=== PATIENT | male | born 1955 | race Caucasian/White ===

== ENCOUNTER 2017-06-23 13:47 | Observation (INO) | payer SELFPAY ==
[~2017-06-23] VITALS: Ht 177.8 cm; Wt 90.0 kg
[2017-06-23 13:49] VITALS: BP 151/73; PULSE 75; RESP 17; TEMP 97.7; O2SAT 98
[2017-06-23 14:01] VITALS: BP 163/80; PULSE 77; RESP 12; TEMP 98.1; O2SAT 99
[2017-06-23] MEDS ORDERED: GLUM1000 PO (14:15)
[2017-06-23] MEDS ORDERED: [UNRECOGNIZED DRUG - OTHER] (14:15)
[2017-06-23] MEDS ORDERED: ASPIRIN 81 MG CHEW TAB PO ONE (14:15)
[2017-06-23] MEDS ORDERED: MORPHINE SULFATE 4 MG/ML INJ IV PUSH ONE (14:15)
[2017-06-23] MEDS ORDERED: GABA600T PO (14:15)
[2017-06-23] MEDS ORDERED: GLIP-158 PO (14:15)
[2017-06-23] MEDS ORDERED: SODIUM CHLORIDE 0.9% FLUSH 10 ML FLUSH IVF PRN (14:15)
[2017-06-23] MEDS ORDERED: ONDANSETRON HCL 4 MG/2 ML VIAL IV PUSH ONE (14:15)
--- NOTE | 2017-06-23 14:17 | PD ---
HPI . Chest pain Chief Complaint: Chest Pain Time Seen by Provider: 14:02 Travel History International Travel<30 days: No Contact w/Intl Traveler<30days: No Traveled to known affect area: No History of Present Illness HPI This patient presents with a chief complaint of chest pain. Onset was 4 days ago. He describes it as a heaviness which has been constant. The intensity is 3/10. No modifying factors. He has no associated symptoms such as shortness of breath, nausea, diaphoresis. He has no known history of coronary artery disease. He does have a history of diabetes and hypertension. He states that he had been on lisinopril for his blood pressure but that the side effects were not tolerable. He now uses an herbal remedy. PFSH Past Medical History Diabetes: Yes Social History Tobacco Use: No Allergies-Medications (Allergen,Severity, Reaction): Coded Allergies: penicillin G (Verified Allergy, Unknown, 06/23/17) Reported Meds & Prescriptions Reported Meds & Active Scripts Active Reported [Bp Suplement ] Gabapentin 600 Mg Tab 600 Mg PO HS Glipizide XL (Glipizide) 2.5 Mg Bettie 2.5 Mg PO DAILY Take with breakfast or first main meal of the day Glumetza (Metformin HCl) 1,000 Mg Bettie 2,000 Mg PO DAILY With evening mal Review of Systems Except as stated in HPI: all other systems reviewed are Neg Cardiovascular: Positive: Chest Pain or Discomfort Respiratory: No: Shortness of Breath Gastrointestinal: No: Nausea Neurologic: Positive: Other (diabetic neuropathy) Physical Exam Narrative GENERAL: Awake and alert and in no acute distress. SKIN: warm/dry. Good color. HEAD: Normocephalic. Atraumatic. EYES: Pupils equal and round. No scleral icterus. No injection or drainage. ENT: No nasal bleeding or discharge. Mucous membranes pink and moist. NECK: Trachea midline. Full range of motion without pain.. CARDIOVASCULAR: Regular rate and rhythm. Heart sounds are normal. RESPIRATORY: No accessory muscle use. Clear to auscultation. Breath sounds equal bilaterally. No chest wall tenderness. GASTROINTESTINAL: Abdomen soft. Nontender. Bowel sounds present. Nondistended. MUSCULOSKELETAL: No obvious deformities. NEUROLOGICAL: Awake and alert. No obvious cranial nerve deficits. Motor grossly within normal limits. Normal speech. PSYCHIATRIC: Appropriate mood and affect; insight and judgment normal. Data Data Last Documented VS Vital Signs Date Time Temp Pulse Resp B/P (MAP) Pulse Ox O2 Delivery O2 Flow Rate FiO2 06/23/17 14:17 (99) Room Air 06/23/17 14:07 78 06/23/17 14:01 98.1 12 99 Orders Orders Electrocardiogram (06/23/17 ) Electrocardiogram (06/23/17 14:07) Basic Metabolic Panel (Bmp) (06/23/17 14:07) Ckmb (Isoenzyme) Profile (06/23/17 14:07) Complete Blood Count With Diff (06/23/17 14:07) Magnesium (Mg) (06/23/17 14:07) Prothrombin Time / Inr (Pt) (06/23/17 14:07) Act Partial Throm Time (Ptt) (06/23/17 14:07) Troponin I (06/23/17 14:07) Chest, Single Ap (06/23/17 14:07) Ecg Monitoring (06/23/17 14:07) Iv Access Insert/Monitor (06/23/17 14:07) Oximetry (06/23/17 14:07) Aspirin Chew (Aspirin Chew) (06/23/17 14:15) Morphine Inj (Morphine Inj) (06/23/17 14:15) Sodium Chloride 0.9% Flush (Ns Flush) (06/23/17 14:15) Ondansetron Inj (Zofran Inj) (06/23/17 14:15) CKMB (06/23/17 14:20) CKMB% (06/23/17 14:20) Admit Order (Ed Use Only) (06/23/17 15:12) Labs Laboratory Tests Test 06/23/17 14:20 White Blood Count 10.8 TH/MM3 Red Blood Count 4.52 MIL/MM3 Hemoglobin 14.8 GM/DL Hematocrit 41.0 % Mean Corpuscular Volume 90.8 FL Mean Corpuscular Hemoglobin 32.7 PG Mean Corpuscular Hemoglobin Concent 36.0 % Red Cell Distribution Width 12.8 % Platelet Count 274 TH/MM3 Mean Platelet Volume 7.7 FL Neutrophils (%) (Auto) 60.0 % Lymphocytes (%) (Auto) 28.2 % Monocytes (%) (Auto) 7.4 % Eosinophils (%) (Auto) 3.7 % Basophils (%) (Auto) 0.7 % Neutrophils # (Auto) 6.4 TH/MM3 Lymphocytes # (Auto) 3.0 TH/MM3 Monocytes # (Auto) 0.8 TH/MM3 Eosinophils # (Auto) 0.4 TH/MM3 Basophils # (Auto) 0.1 TH/MM3 CBC Comment DIFF FINAL Differential Comment Prothrombin Time 11.4 SEC Prothromb Time International Ratio 1.0 RATIO Activated Partial Thromboplast Time 26.7 SEC Blood Urea Nitrogen 21 MG/DL Creatinine 0.76 MG/DL Random Glucose 175 MG/DL Calcium Level 9.0 MG/DL Magnesium Level 2.0 MG/DL Sodium Level 140 MEQ/L Potassium Level 4.2 MEQ/L Chloride Level 106 MEQ/L Carbon Dioxide Level 24.1 MEQ/L Anion Gap 10 MEQ/L Estimat Glomerular Filtration Rate 104 ML/MIN Total Creatine Kinase 153 U/L Creatine Kinase MB 3.4 NG/ML Troponin I LESS THAN 0.02 NG/ML MDM Medical Decision Making Medical Screen Exam Complete: Yes Emergency Medical Condition: Yes Interpretation(s) EKG shows a normal sinus rhythm with no acute ischemic change. Differential Diagnosis Differential diagnosis of chest pain includes but is not limited to musculoskeletal pain, pulmonary embolism, acute coronary syndrome, pneumonia, pleurisy Narrative Course This patient presents with chest pain. He has had it continuously for 4 days. Therefore, the likelihood of ACS is very slim. CBC & BMP Diagram 06/23/17 14:20 Calcium Level 9.0, Magnesium Level 2.0 trop < 0.02 This patient certainly has risk factors for coronary artery disease. He will be admitted to the chest pain center for further evaluation. Diagnosis Primary Impression: Chest pain Qualified Codes: R07.9 - Chest pain, unspecified Admitting Information Admitting Physician Requests: Observation Condition: Stable Anna Izaguirre MD Jun 23, 2017 14:17
[2017-06-23 14:32] LABS: AUTOMATED NEUTROPHIL # 6.4 TH/MM3 (1.8-7.7); BASOPHIL # 0.1 TH/MM3 (0-0.2); BASOPHIL % 0.7 % (0.0-2.0); EOSINOPHIL # 0.4 TH/MM3 (0-0.4); EOSINOPHIL % 3.7 % (0.0-4.0); LYMPH % 28.2 % (9.0-44.0); MEAN CELL VOLUME 90.8 FL (80.0-100.0); MEAN CORPUSCULAR HEMOGLOBIN 32.7 PG (27.0-34.0); MONO % 7.4 % (0.0-8.0); PLATELET COUNT 274 TH/MM3 (150-450); RED BLOOD COUNT 4.52 MIL/MM3 (4.50-5.90); RED CELL DISTRIBUTION WIDTH 12.8 % (11.6-17.2); WHITE BLOOD COUNT 10.8 TH/MM3 (4.0-11.0)
[2017-06-23 14:37] LABS: HEMO FLAGS DIFF FINAL
[2017-06-23 14:41] LABS: APTT (PATIENT) 26.7 SEC (24.3-30.1); PROTHROMBIN TIME - PATIENT 11.4 SEC (9.8-11.6)
[2017-06-23 14:52] LABS: ANION GAP 10 MEQ/L (5-15); BICARBONATE 24.1 MEQ/L (21.0-32.0); BLOOD UREA NITROGEN 21 MG/DL (7-18); CHLORIDE 106 MEQ/L (98-107); GLOMERULAR FILTRATION RATE 104 ML/MIN (>89); POTASSIUM 4.2 MEQ/L (3.5-5.1); SODIUM (NA) 140 MEQ/L (136-145)
[2017-06-23 14:54] LABS: CREATINE KINASE 153 U/L (39-308)
--- NOTE | 2017-06-23 14:58 | RADRPT ---
EXAM DATE/TIME: 06/23/2017 14:32 [facility] COMPARISON: No previous studies available for comparison. INDICATIONS : Heaviness in the chest. MEDICAL HISTORY : Hypertension. Diabetes mellitus type II. SURGICAL HISTORY : None. ENCOUNTER: Initial ACUITY: 4 - 6 days PAIN SCORE: 0/10 LOCATION: Bilateral chest FINDINGS: A single view of the chest demonstrates the lungs to be symmetrically aerated without evidence of mas s, infiltrate or effusion. The cardiomediastinal contours are unremarkable. Osseous structures are intact. Calcified granuloma left lung base. CONCLUSION: Calcified granuloma left lung base. Faustino Tom MD on June 23, 2017 at 14:56 Board Certified Radiologist. This report was verified electronically.
[2017-06-23 15:07] LABS: CKMB 3.4 NG/ML (0.5-3.6)
[2017-06-23] MEDS ORDERED: ACETAMINOPHEN 500 MG CPLT PO PRN (15:30)
[2017-06-23] MEDS ORDERED: ONDANSETRON HCL 4 MG/2 ML VIAL IV PUSH PRN (15:30)
[2017-06-23] MEDS ORDERED: NITROGLYCERIN 0.4 MG SL 25 TABS/BTL SL PRN (15:30)
--- NOTE | 2017-06-23 16:08 | HHI.HP ---
HPI Primary Care Physician Alan Garcia MD Chief Complaint Chest heaviness History of Present Illness 61-year-old male with past medical history of ktm-[id number]-ownadrxol diabetes and hypertension presents to emergency room for further evaluation of chest pain. Onset 4 days ago, does not recall exact time or activity when pain began. Location generalized chest area, pointing to left and right anterior chest and substernal area. Characterized as "heaviness, not a pain or discomfort." No radiation of heaviness. No associated symptoms of nausea, vomiting, diaphoresis, or dyspnea. Denies similar pain in the past. No known precipitating or relieving factors. Does not hurt to take a deep breath. Review of Systems General: No fatigue,weakness, fever, chills, recent illness, or change in appetite. Has been his general state health. HEENT: No ROOT CV: Continues to have chest heaviness as stated above. No chest pain, discomfort, or pressure. RESP: No SOB, cough, wheeze, recent URI, or history of asthma. GI: No nausea, vomiting, bowel changes, diarrhea, constipation, pain, distention , melena, or blood in the stool. No unintentional weight gain or weight loss. : No dysuria, urgency, or history of kidney stones EXT: No lower leg edema, no paraesthesias MS: Chronic discomfort bilateral lower knees and right hip, No change in ROM, injury or trauma. NEURO: No difficulty with balance, LOC, motor/sensory deficits. PSYCH: No anxiety, depression, or situational stress. SKIN: No rashes. Concerning lesion midright side of neck, told area is suspected to be a basal cell and he has scheduled for lesion to be removed Past Family Social History Allergies: Coded Allergies: penicillin G (Verified Allergy, Unknown, 06/23/17) Past Medical History Type 2 diabetes bcy-rekhpbb-cnrujxkzm, hypertension, peripheral neuropathy Past Surgical History Left knee surgery, left ankle surgery Reported Medications Reported Meds & Active Scripts Active Reported Herbal blood pressure supplement-has been out of supplement x1 week Gabapentin 600 Mg Tab 600 Mg PO HS Glipizide XL (Glipizide) 2.5 Mg Bettie 2.5 Mg PO DAILY Take with breakfast or first main meal of the day Glumetza (Metformin HCl) 1,000 Mg Bettie 2,000 Mg PO DAILY With evening mal Active Ordered Medications Current Medications Medications (Trade) Dose Ordered Sig/Cody Route Start Time Stop Time Status Last Admin (NS Flush) 2 ml UNSCH PRN IVF 06/23/17 14:15 (NS Flush) 2 ml BID IV FLUSH 06/23/17 21:00 (Tylenol) 500 mg Q4H PRN PO 06/23/17 15:30 (Zofran Inj) 4 mg Q6H PRN IV PUSH 06/23/17 15:30 (Nitrostat Sl) 0.4 mg Q5M PRN SL 06/23/17 15:30 (Aspirin) 325 mg DAILY PO 06/24/17 09:00 Family History Positive for early onset cardiovascular disease. One brother CABGx3 age 42. Another brother required cardiac stent placed in mid-50s. Mother CABGx3 late 50s, 8 years later during a second CABG surgery. Cousin (his dad and uncle sisters)-[place] age 60. Social History Known diabetes type 2 and hypertension. No known hyperlipidemia or coronary artery disease. Currently not taking a prescription blood pressure medication, taking an herbal supplement. Lifelong nonsmoker. Denies any alcohol or illegal drug use. . Past cardiac testing No recent stress testing. Exercise stress test many years ago reported to be unremarkable. Physical Exam Vital Signs Vital Signs Date Time Temp Pulse Resp B/P (MAP) Pulse Ox O2 Delivery O2 Flow Rate FiO2 06/23/17 14:17 (99) Room Air 06/23/17 14:07 78 06/23/17 14:01 98.1 77 12 163/80 (107) 99 06/23/17 13:49 97.7 75 17 151/73 (99) 98 Room Air Physical Exam GENERAL: Alert WN, WD, NAD, pleasant, male HEAD: NC, AT EYES: Sclera clear, conjunctiva without injection, pupils equal and round ENT: Mucous membranes pink and moist NECK: Supple, no masses, trachea midline CV: RRR, without murmur, rub, gallop, no JVD, S1-S2 no S3-S4. Chest wall pain/ heaviness is not reproduced or made worse with palpation. RESP: Clear lungs throughout bilateral, no crackles, wheeze, rhonchi, symmetrical chest rise, nonlabored, able to speak in full sentences ABD: Soft, NT, ND, no masses, positive bowel tones EXT: Pulses +24, no dependent edema MS: Normal tone 4 extremities, nontender, no obvious deformities, full range of motion NEURO: motor strength 5/5, gait WNL PSYCH: A+O 3, pleasant affect, appropriate speech, mood, insight and judgment SKIN: Normal turgor, normal texture, brisk cap refill, even hair distribution, right lateral side of neck small brown lesion Laboratory Laboratory Tests Test 06/23/17 14:20 White Blood Count 10.8 Red Blood Count 4.52 Hemoglobin 14.8 Hematocrit 41.0 Mean Corpuscular Volume 90.8 Mean Corpuscular Hemoglobin 32.7 Mean Corpuscular Hemoglobin Concent 36.0 Red Cell Distribution Width 12.8 Platelet Count 274 Mean Platelet Volume 7.7 Neutrophils (%) (Auto) 60.0 Lymphocytes (%) (Auto) 28.2 Monocytes (%) (Auto) 7.4 Eosinophils (%) (Auto) 3.7 Basophils (%) (Auto) 0.7 Neutrophils # (Auto) 6.4 Lymphocytes # (Auto) 3.0 Monocytes # (Auto) 0.8 Eosinophils # (Auto) 0.4 Basophils # (Auto) 0.1 CBC Comment DIFF FINAL Differential Comment Prothrombin Time 11.4 Prothromb Time International Ratio 1.0 Activated Partial Thromboplast Time 26.7 Blood Urea Nitrogen 21 Creatinine 0.76 Random Glucose 175 Calcium Level 9.0 Magnesium Level 2.0 Sodium Level 140 Potassium Level 4.2 Chloride Level 106 Carbon Dioxide Level 24.1 Anion Gap 10 Estimat Glomerular Filtration Rate 104 Total Creatine Kinase 153 Creatine Kinase MB 3.4 Troponin I LESS THAN 0.02 Result Diagram: 06/23/17 1420 06/23/17 1420 Imaging Last Impressions Chest X-Ray 06/23/17 1407 Signed Impressions: Service Date/Time: Friday, June 23, 2017 14:32 - CONCLUSION: Calcified granuloma left lung base. Faustino Tom MD Course EKG First-degree AV block, no ST or T-segment changes, small q waves inferiorly Caprini VTE Risk Assessment Caprini VTE Risk Assessment: Mod/High Risk (score >= 2) Caprini Risk Assessment Model Point Value = 1 Point Value = 2 Point Value = 3 Point Value = 5 Age 41-60 Minor surgery BMI > 25 kg/m2 Swollen legs Varicose veins or History of unexplained or recurrent spontaneous Oral contraceptives or hormone replacement Sepsis (< 1 month) Serious lung disease, including pneumonia (< 1 month) Abnormal pulmonary function Acute myocardial infarction Congestive heart failure (< 1 month) History of inflammatory bowel disease Medical patient at bed rest Age 61-74 Arthroscopic surgery Major open surgery (> 45 min) Laparoscopic surgery (> 45 min) Malignancy Confined to bed (> 72 hours) Immobilizing plaster cast Central venous access Age >= 75 History of VTE Family history of VTE Factor V Leiden Prothrombin [id number] Lupus anticoagulant Anticardiolipin antibodies Elevated serum homocysteine Heparin-induced thrombocytopenia Other congenital or acquired thrombophilia Stroke (< 1 month) Elective arthroplasty Hip, pelvis, or leg fracture Acute spinal cord injury (< 1 month) Prophylaxis Regimen Total Risk Factor Score Risk Level Prophylaxis Regimen 0-1 Low Early ambulation 2 Moderate Order ONE of the following: *Sequential Compression Device (SCD) *Heparin 5000 units SQ BID 3-4 Higher Order ONE of the following medications: *Heparin 5000 units SQ TID *Enoxaparin/Lovenox 40 mg SQ daily (WT < 150 kg, CrCl > 30 mL/min) *Enoxaparin/Lovenox 30 mg SQ daily (WT < 150 kg, CrCl > 10-29 mL/min) *Enoxaparin/Lovenox 30 mg SQ BID (WT < 150 kg, CrCl > 30 mL/min) AND/OR *Sequential Compression Device (SCD) 5 or more Highest Order ONE of the following medications: *Heparin 5000 units SQ TID (Preferred with Epidurals) *Enoxaparin/Lovenox 40 mg SQ daily (WT < 150 kg, CrCl > 30 mL/min) *Enoxaparin/Lovenox 30 mg SQ daily (WT < 150 kg, CrCl > 10-29 mL/min) *Enoxaparin/Lovenox 30 mg SQ BID (WT < 150 kg, CrCl > 30 mL/min) AND *Sequential Compression Device (SCD) Assessment and Plan Assessment and Plan #1 Atypical chest pain-admitted to chest pain center. Rule out with 3 sets of EKGs, cardiac enzymes, and monitor overnight. Will be seen and evaluated by Dr. Geoffrey Kohli in a.m. Reassurance provided to both patient and his chest discomfort not likely cardiac related due to prolonged, constant presentation. Discussed cardiovascular disease risk factors, which he certainly has, will likely lead to a cardiac stress testing in morning. Patient agreeable to plan of care. #2 Diabetes Type II-continue metformin and glipizide #3 Hypertension-continue to monitor, discussed importance of tight blood pressure control, including following a low sodium diet and increasing daily activity #4 Diabetic peripheral neuropathy-continue gabapentin Niki Bryant Jun 23, 2017 16:08
[2017-06-23 16:22] VITALS: BP 176/80; PULSE 88; RESP 22; TEMP 98.2; O2SAT 98
[2017-06-23] MEDS ORDERED: DEXTROSE 50% IN WATER 50 ML VIAL(D50) IV PUSH PRN (18:00)
[2017-06-23] MEDS ORDERED: amLODIPine BESYLATE 5 MG TAB PO ONE (18:00)
[2017-06-23] MEDS ORDERED: GLUCAGON 1 MG/ML VIAL OTHER PRN (18:00)
[2017-06-23] MEDS ORDERED: cloNIDine HCL 0.1 MG TAB PO PRN (18:00)
[2017-06-23 18:09] LABS: CREATINE KINASE 112 U/L (39-308)
[2017-06-23] MEDS: metFORMIN HCL 500 MG TAB PO SCH (18:15)
[2017-06-23] MEDS ORDERED: PILL SPLITTER OTHER PRN (18:15)
[2017-06-23 18:22] LABS: CKMB 2.7 NG/ML (0.5-3.6)
[2017-06-23 20:28] VITALS: BP 152/78; PULSE 89; RESP 17; TEMP 98.3; O2SAT 97
[2017-06-23] MEDS: INSULIN ASPART SUPPLEMENTAL SCALE SQ SCH (20:40)
[2017-06-23] MEDS ORDERED: GABAPENTIN 300 MG CAP PO SCH (21:00)
[2017-06-23 21:36] LABS: CREATINE KINASE 100 U/L (39-308)
[2017-06-23 23:24] VITALS: BP 125/64; PULSE 67; RESP 16; TEMP 97.9; O2SAT 97
[2017-06-23] MEDS: SODIUM CHLORIDE 0.9% FLUSH 10 ML FLUSH IV FLUSH SCH (23:26)
[2017-06-24 03:01] VITALS: BP 139/80; PULSE 80; RESP 17; TEMP 98.4; O2SAT 97
[2017-06-24 07:17] VITALS: O2SAT 96
[2017-06-24 07:46] VITALS: BP 142/77; PULSE 71; RESP 22; TEMP 98.4; O2SAT 98
[2017-06-24] MEDS: INSULIN ASPART SUPPLEMENTAL SCALE SQ SCH ×2 (08:00→12:00)
[2017-06-24] MEDS ORDERED: glipiZIDE 5 MG TAB PO SCH (08:00)
[2017-06-24] MEDS: SODIUM CHLORIDE 0.9% FLUSH 10 ML FLUSH IV FLUSH SCH (09:00)
[2017-06-24] MEDS ORDERED: ASPIRIN 325 MG TAB PO SCH (09:00)
[2017-06-24] MEDS ORDERED: REGADENOSON INJ 0.4 MG/5 ML SYR ONE (10:22)
--- NOTE | 2017-06-24 12:20 | RADRPT ---
EXAM DATE/TIME: 06/24/2017 10:18 [facility] COMPARISON: No previous studies available for comparison. INDICATIONS : Left sided chest pain for four days. Angina. DOSE: 25.5 mCi Tc99m Myoview at stress. 8.7 mCi Tc99m Myoview at rest. 0.4 mg Lexiscan STRESS SYMPTOMS: None noted. EJECTION FRACTION: 65% MEDICAL HISTORY : Hypertension. Diabetes mellitus type 2. SURGICAL HISTORY : Total knee replacement, left. ENCOUNTER: Initial ACUITY: 4 - 6 days PAIN SCALE: 7/10 LOCATION: Left chest TECHNIQUE: The patient underwent pharmacologic stress with infusion of prescribed dose. Continuous ECG tracing was monitored during stress. Gated SPECT imaging was performed after stress and conventional SPECT i maging was performed at rest. The examination was performed on a SPECT/CT scanner, both attenuation and non-corrected datasets were reviewed. FINDINGS: DISTRIBUTION: The maximum perfused segment at stress is in the septal wall. PERFUSION STUDY: The pattern of perfusion at stress is within normal limits. GATED STUDY: There is intact wall motion and thickening without hypokinetic or dyskinetic segments. CONCLUSION: Myocardial perfusion study within normal limits. RISK CATEGORY: 1 - Low Risk. Varghese Quinones MD on June 24, 2017 at 12:17 Board Certified Radiologist. This report was verified electronically.
[2017-06-24 12:31] VITALS: BP 171/84
[2017-06-24 12:32] VITALS: BP 171/84; PULSE 80; RESP 18; TEMP 97.9; O2SAT 96
[2017-06-24] MEDS ORDERED: LOSA50TA PO (12:37)
[2017-06-24] MEDS ORDERED: ATOR10TA15 PO (12:37)
[2017-06-24] MEDS ORDERED: METO25TA3 PO (12:37)
--- NOTE | 2017-06-24 12:39 | HHI.DCPOC ---
Discharge Care Plan Diagnosis: (1) Atypical chest pain (2) Hypertension (3) Type 2 diabetes mellitus (4) Nonsustained ventricular tachycardia Goals to Promote Your Health * To prevent worsening of your condition and complications * To maintain your health at the optimal level Directions to Meet Your Goals Take your medications as prescribed Follow your dietary instruction Follow activity as directed Keep your appointments as scheduled Take your immunizations and boosters as scheduled If your symptoms worsen call your PCP, if no PCP go to Urgent Care Center or Emergency Room Smoking is Dangerous to Your Health. Avoid second hand smoke Call the 24-hour hour crisis hotline for domestic abuse at Niki Bryant Jun 24, 2017 12:39
--- NOTE | 2017-06-24 12:49 | HHI.DS ---
Discharge Summary Admission Date Jun 23, 2017 at 15:14 Discharge Date: Jun 24, 2017 Admitting Diagnosis chest pain Brief History 61 male presented to ER with 4 days content chest heaviness. History of diabetes type II and hypertension. Admitted to chest pain center. Ruled out with 3 sets of EKG and cardiac enzymes. After review of telemetry, 8 beat run nonsustained Vtach at 3:25am. No other ectopy found on telemetry. CBC/BMP: 06/23/17 1420 06/23/17 1420 Significant Findings Laboratory Tests Test 06/23/17 14:20 06/23/17 17:20 06/23/17 20:40 Blood Urea Nitrogen 21 MG/DL (7-18) Random Glucose 175 MG/DL (74-106) Troponin I LESS THAN 0.02 NG/ML LESS THAN 0.02 NG/ML LESS THAN 0.02 NG/ML Imaging Last Impressions Chest X-Ray 06/23/17 1407 Signed Impressions: Service Date/Time: Sunday, June 23, 2017 14:32 - CONCLUSION: Calcified granuloma left lung base. Faustino Tom MD Pt Condition on Discharge: Good Discharge Disposition: Discharge Home Discharge Instructions DIET: Follow Instructions for: Heart Healthy Diet Speech Therapy-Diet Recommenda: Regular Additional Information Dr. Kohli called and spoke with Dr. العلي regarding 8 beats of non- sustained vtach, atypical prolonged chest heaviness, and normal Lexiscan. Both MDs agree patient should be discharged home with a beta donna with follow up with his PCP. Niki Bryant Jun 24, 2017 12:49
[2017-06-24] MEDS: metFORMIN HCL 500 MG TAB PO SCH (12:52)
[2017-06-24] MEDS ORDERED: NITR1SUB3 SL (12:54)
[2017-06-24] MEDS ORDERED: METOPROLOL TARTRATE 25 MG TAB PO SCH (13:00)
[2017-06-24] MEDS ORDERED: LOSARTAN 50 MG TAB PO ONE (13:00)
[2017-06-24 13:53] VITALS: BP 141/75; PULSE 74
--- NOTE | 2017-06-24 14:18 | TR ---
Date Performed: 06/24/2017 Time Performed: 10:35:54 DOCTOR: Geoffrey Kohli DRUG LIST: CLINICAL HISTORY: ANGINA REASON FOR TEST: Angina REASON FOR ENDING: OBSERVATION: CONCLUSION: Lexiscan stress test was performed under standard four minute protocol. Radionuclid e was injected one minute prior to ending the test. No electrocardiographic abormalities were present to suggest ischemia. Nuclear imaging and interpretation are pending. COMMENTS:
--- NOTE | 2017-06-24 14:19 | EKG ---
Date Performed: 06/23/2017 Time Performed: 17:31:31 PTAGE: 61 years EKG: Sinus rhythm WITH FIRST DEGREE AV BLOCK MODERATE INTRAVENTRICULAR CONDUCTION DELAY ABNORMAL ECG NO PREVIOUS TRACING DOCTOR: Geoffrey Kohli Interpretating Date/Time 06/24/2017 14:18:23
--- NOTE | 2017-06-24 14:21 | EKG ---
Date Performed: 06/23/2017 Time Performed: 14:10:19 PTAGE: 61 years EKG: Sinus rhythm WITH FIRST DEGREE AV BLOCK POSSIBLE INFERIOR MYOCARDIAL INFARCTION ABNORMAL ECG NO PREVIOUS TRACING DOCTOR: Geoffrey Kohli Interpretating Date/Time 06/24/2017 14:20:33
--- NOTE | 2017-06-24 14:21 | EKG ---
Date Performed: 06/23/2017 Time Performed: 20:37:45 PTAGE: 61 years EKG: Sinus rhythm WITH FIRST DEGREE AV BLOCK ABNORMAL ECG Since PREVIOUS TRACING , no significant change noted DOCTOR: Geoffrey Kohli Interpretating Date/Time 06/24/2017 14:21:07
== END 2017-06-24 15:59 | disposition home or self-care (01) ==
LOC: NEPC 13:47 → NEDA 15:14 → NEPHCDU 15:56 → NEPFCDU 19:03
DX: R07.89 Other chest pain (principal); I10 Essential (primary) hypertension; E11.9 Type 2 diabetes mellitus without complications; I47.2 Ventricular tachycardia; R94.31 Abnormal electrocardiogram [ECG] [EKG]
CPT/HCPCS: 71010; 78452; 80048; 82550; 82552; 82948; 83735; 84484; 85025; 85610; 85730; 93005; 93017; 96374; 96375; 99285; A9502; G0378; J2270; J2405; J2785

== ENCOUNTER 2017-11-13 02:44 | Emergency (ER) | payer SELFPAY ==
[~2017-11-13 02:44] MED LIST: ATOR10TA15 PO; GABA600T PO; GLIP-158 PO; GLUM1000 PO; LOSA50TA PO; METO25TA3 PO; NITR1SUB3 SL
[2017-11-13 02:47] VITALS: BP 218/100; PULSE 89; RESP 19; TEMP 98.8
--- NOTE | 2017-11-13 03:24 | PD ---
HPI Chief Complaint: Abdominal Pain Time Seen by Provider: 03:16 Travel History International Travel<30 days: No Contact w/Intl Traveler<30days: No Traveled to known affect area: No History of Present Illness HPI The patient is a 62 year old male who presents to the [facility] emergency department with a history of midepigastric abdominal pain that he reports began at 9:45 PM tonight. He reports that he last ate at 6:30 PM. He reports that he has had nausea and vomiting approximately 9 times since onset. He denies having any diarrhea. His last bowel movement was at approximately 1 PM. He denies having any blood in his stool or black or tarry stools. He reports that he has had a colonoscopy years ago that was unremarkable. He reports that the pain is constant and severe. He reports that it is a sharp sensation that radiates straight through to his back. He reports that the pain reminds him of when he had a kidney stone in 2005. He denies having any dysuria or urinary urgency associated with this. He does however report having urinary frequency per he denies having any known fevers or chills, cough or congestion, neck pain , chest pain, shortness of breath, or neurologic symptoms. [facility] Past Medical History Narrative Medical The patient's past medical history is significant for hypertension, diabetes mellitus, kidney stones, diabetic neuropathy. Diabetes: Yes Past Surgical History Narrative Surgical The patient's past surgical history is significant for left knee surgery, left ankle surgery. Social History Alcohol Use: No Tobacco Use: No Substance Use: No Allergies-Medications (Allergen,Severity, Reaction): Coded Allergies: penicillin G (Verified Allergy, Unknown, 11/13/17) Reported Meds & Prescriptions Reported Meds & Active Scripts Active Nitroglycerin SL (Nitroglycerin) 0.4 Mg Subl 0.4 Mg SL DIRECTED PRN ONE TABLET UNDER THE TONGUE NEEDED FOR CHEST PAIN, MAY REPEAT EVERY FIVE MINUTES FOR A TOTAL OF 3 DOSES OR CALL 911 IF NO RELIEF Metoprolol Tartrate 25 Mg Tab 25 Mg PO BID Losartan (Losartan Potassium) 50 Mg Tab 50 Mg PO DAILY Atorvastatin (Atorvastatin Calcium) 10 Mg Tab 10 Mg PO HS Reported Gabapentin 600 Mg Tab 600 Mg PO HS Glipizide XL (Glipizide) 2.5 Mg Bettie 2.5 Mg PO DAILY Take with breakfast or first main meal of the day Glumetza (Metformin HCl) 1,000 Mg Bettie 2,000 Mg PO DAILY With evening mal Review of Systems Except as stated in HPI: all other systems reviewed are Neg General / Constitutional: No: Fever Eyes: No: Visual changes HENT: No: Headaches Cardiovascular: No: Chest Pain or Discomfort Respiratory: No: Shortness of Breath Gastrointestinal: Positive: Nausea, Vomiting, Abdominal Pain, No: Hematemesis, Hematochezia, Changes in Bowel Habits, Indigestion, Loss of Appetite Genitourinary: No: Urgency, Frequency, Dysuria, Hematuria, Flank Pain Musculoskeletal: Positive: Myalgias, No: Pain Skin: No Rash Neurologic: No: Weakness, Change in Mentation, Slurred Speech, Sensory Disturbance Psychiatric: No: Depression Endocrine: No: Polydipsia Hematologic/Lymphatic: No: Easy Bruising Physical Exam Narrative General: The patient is a well-developed well-nourished male in no acute distress. Head and Neck exam: Head is normocephalic atraumatic. Eyes: EOMI, pupils are equal round and reactive to light. Nose: Midline septum with pink mucous membranes Mouth: Dentition unremarkable. Moist mucus membranes. Posterior oropharynx is not erythematous. No tonsillar hypertrophy. Uvula midline. Airway patent. Neck: No palpable lymphadenopathy. No nuchal rigidity. No thyromegaly. Cardiovascular: Regular rate and rhythm without murmurs, gallops, or rubs. No pulse deficit to the extremities on simultaneous auscultation and palpation of his radial artery. Lungs: Clear to auscultation bilaterally. No wheezes, rhonchi, or rales. Abdomen: Soft, with tenderness on palpation in the right upper quadrant and midepigastric area of the abdomen. No other tenderness on palpation of the other quadrants of the abdomen. No guarding, rebound, or rigidity. Normal bowel sounds are audible. No tenderness on palpation of McBurney's point. Negative Guajardo sign. Extremities: No clubbing, cyanosis, or edema. 2+ pulses in all 4 extremities. No calf tenderness on palpation peer Back: No spinous process tenderness to palpation. No costovertebral angle tenderness to palpation. Neurologic Exam: Grossly nonfocal. Skin Exam: No rash noted. Intact skin that is warm and dry. Data Data Last Documented VS Vital Signs Date Time Temp Pulse Resp B/P (MAP) Pulse Ox O2 Delivery O2 Flow Rate FiO2 11/13/17 04:48 88 15 199/63 (108) 98 Room Air 2.00 11/13/17 02:47 98.8 Orders Orders Electrocardiogram (11/13/17 03:18) Complete Blood Count With Diff (11/13/17 03:18) Comprehensive Metabolic Panel (11/13/17 03:18) Creatine Kinase (Cpk) (11/13/17 03:18) Ckmb (Isoenzyme) Profile (11/13/17 03:18) Troponin I (11/13/17 03:18) Prothrombin Time / Inr (Pt) (11/13/17 03:18) Act Partial Throm Time (Ptt) (11/13/17:18) Amylase (11/13/17:18) Urinalysis - C+S If Indicated (11/13/17 03:18) Magnesium (Mg) (11/13/17 03:18) Chest, Single Ap (11/13/17 03:18) Iv Access Insert/Monitor (11/13/17 03:18) Ecg Monitoring (11/13/17 03:18) Oximetry (11/13/17 03:18) Sodium Chlor 0.9% 1000 Ml Inj (Ns 1000 M (11/13/17 03:45) Ondansetron Inj (Zofran Inj) (11/13/17 03:45) Ed Poc Ultrasound (11/13/17 03:37) Ct Abd/Pel W Iv Contrast(Rout) (11/13/17 03:48) Fentanyl Inj (Fentanyl Inj) (11/13/17 04:00) Fentanyl Inj (Fentanyl Inj) (11/13/17 03:55) CKMB (11/13/17 04:25) CKMB% (11/13/17 04:25) Iohexol 350 Inj (Omnipaque 350 Inj) (11/13/17 05:48) Hydromorphone Pf Inj (Dilaudid Pf Inj) (11/13/17 06:00) Ciprofloxacin 400 Mg Premix (Cipro 400 M (11/13/17 06:15) Labs Laboratory Tests Test 11/13/17 04:25 White Blood Count 14.9 TH/MM3 Red Blood Count 4.83 MIL/MM3 Hemoglobin 15.1 GM/DL Hematocrit 43.2 % Mean Corpuscular Volume 89.3 FL Mean Corpuscular Hemoglobin 31.2 PG Mean Corpuscular Hemoglobin Concent 35.0 % Red Cell Distribution Width 12.8 % Platelet Count 307 TH/MM3 Mean Platelet Volume 7.4 FL Neutrophils (%) (Auto) 87.8 % Lymphocytes (%) (Auto) 8.2 % Monocytes (%) (Auto) 3.4 % Eosinophils (%) (Auto) 0.2 % Basophils (%) (Auto) 0.4 % Neutrophils # (Auto) 13.1 TH/MM3 Lymphocytes # (Auto) 1.2 TH/MM3 Monocytes # (Auto) 0.5 TH/MM3 Eosinophils # (Auto) 0.0 TH/MM3 Basophils # (Auto) 0.1 TH/MM3 CBC Comment DIFF FINAL Differential Comment Prothrombin Time 11.3 SEC Prothromb Time International Ratio 1.1 RATIO Activated Partial Thromboplast Time 24.5 SEC Urine Color LIGHT-YELLOW Urine Turbidity CLEAR Urine pH 6.5 Urine Specific Dahlgren 1.020 Urine Protein 30 mg/dL Urine Glucose (UA) 1000 mg/dL Urine Ketones 10 mg/dL Urine Occult Blood NEG Urine Nitrite NEG Urine Bilirubin NEG Urine Urobilinogen LESS THAN 2.0 MG/DL Urine Leukocyte Esterase NEG Urine RBC 5 /hpf Urine WBC LESS THAN 1 /hpf Microscopic Urinalysis Comment CULT NOT INDICATED Blood Urea Nitrogen 19 MG/DL Creatinine 0.98 MG/DL Random Glucose 267 MG/DL Total Protein 7.8 GM/DL Albumin 4.3 GM/DL Calcium Level 9.0 MG/DL Magnesium Level 2.2 MG/DL Alkaline Phosphatase 65 U/L Aspartate Amino Transf (AST/SGOT) 11 U/L Alanine Aminotransferase (ALT/SGPT) 24 U/L Total Bilirubin 0.9 MG/DL Sodium Level 140 MEQ/L Potassium Level 4.1 MEQ/L Chloride Level 103 MEQ/L Carbon Dioxide Level 25.1 MEQ/L Anion Gap 12 MEQ/L Estimat Glomerular Filtration Rate 77 ML/MIN Total Creatine Kinase 123 U/L Creatine Kinase MB 2.9 NG/ML Troponin I LESS THAN 0.02 NG/ML Amylase Level 49 U/L MDM Medical Decision Making Medical Screen Exam Complete: Yes Emergency Medical Condition: Yes Medical Record Reviewed: Yes Interpretation(s) Last Impressions Chest X-Ray 11/13/179 Signed Impressions: Service Date/Time: Monday, November 13, 2017 03:44 - CONCLUSION: No acute disease. Remy Ray MD Differential Diagnosis Acute pancreatitis, versus acute cholecystitis, versus biliary colic, versus abdominal aortic aneurysm, versus dissecting aorta Narrative Course During the course of the patient's emergency department visit, the patient's history, examination, and differential diagnosis were reviewed with the patient. The patient was placed on a blister rust eradicator with oximetry and frequent blood pressure monitoring. The patient had IV access obtained and blood work sent for analysis. The patient had a EKG ordered on arrival. The patient was initially provided fentanyl for pain, Zofran for nausea, normal saline 1 L IV fluid bolus. The patient continued to have discomfort and was given hydromorphone 0.5 mg IV. The patient's laboratory studies were reviewed and remarkable for a white count of 14.9, hemoglobin 15.1, platelets 307 with 87.8 neutrophils, CMP is remarkable for BUN of 19, glucose 267, AST 11, cardiac enzymes within normal limits, amylase within normal limits. PT PTT within normal limits. Urinalysis shows 30 protein 1000 glucose, 10 ketones, 5 RBCs, otherwise unremarkable. Radiology studies were reviewed and remarkable for a chest x-ray that showed no acute abnormality. CT scan of the abdomen and pelvis showed a small hiatal hernia, enlarged prostate, no acute inflammatory changes, no gallstones or biliary dilatation. Given the patient's urinary frequency there is a suspicion for prostatitis, the patient also has a leukocytosis. The patient was given ciprofloxacin 400 mg IV 1. The patient will be discharged home with a prescription for Cipro. The patient will be given a prescription for pain medication and nausea medication. The patient is instructed to push fluids and get plenty of rest. The patient is resting comfortably and feels better, is alert and in no distress. The patient's results and examination findings were discussed with the patient. The repeat examination is unremarkable and benign. The history, exam, diagnostic testing, and current condition do not suggest any significant pathology to warrant further testing, continued ED treatment, admission, or surgical evaluation at this point. The vital signs have been stable. The patient does not have uncontrollable pain, intractable vomiting, or other significant symptoms. The patient's condition is stable and appropriate for discharge. The patient will pursue further outpatient evaluation with a primary care physician or other designated or consulting physician as indicated in the discharge instructions. The patient expressed understanding and was agreeable with this plan. Diagnosis Primary Impression: Abdominal pain Qualified Codes: R10.13 - Epigastric pain Additional Impressions: Vomiting Qualified Codes: R11.2 - Nausea with vomiting, unspecified Microscopic hematuria Referrals: Primary Care Physician 2 days Patient Instructions: Abdominal Pain (ED), Acute Nausea and Vomiting (ED), General Instructions Med/Other Pt SpecificInfo: Prescription(s) given Scripts Metoclopramide (Reglan) 5 Mg Tab 5 MG PO QID Y for NAUSEA OR VOMITING, #12 TAB 0 Refills Prov: Alda Ott MD 11/13/17 Hydrocodone-Acetaminophen (Hydrocodone-Acetaminophen) 5-325 mg Tab 1 TAB PO Q6H Y for PAIN, #12 TAB 0 Refills Prov: lAda Ott MD 11/13/17 Ciprofloxacin (Cipro) 500 Mg Tab 500 MG PO BID for Infection, #19 TAB 0 Refills Prov: Alda Ott MD 11/13/17 Disposition: 01 DISCHARGE HOME Condition: Stable Alda Ott MD Nov 13, 2017 03:24
[2017-11-13] MEDS ORDERED: ONDANSETRON HCL 4 MG/2 ML VIAL IV PUSH ONE (03:45)
[2017-11-13] MEDS ORDERED: fentaNYL CITRATE 250 MCG/5 ML AMP IV PUSH ONE (03:45)
[2017-11-13] MEDS ORDERED: SODIUM CHLOR 0.9% 1000 ML INJ 1,000 ML IV ONE (03:45)
[2017-11-13] MEDS ORDERED: fentaNYL CITRATE 250 MCG/5 ML AMP ONE (03:55)
--- NOTE | 2017-11-13 04:10 | RADRPT ---
EXAM DATE/TIME: 11/13/2017 03:44 [facility] COMPARISON: CHEST SINGLE AP, June 23, 2017, 14:32. INDICATIONS : Chest pain. MEDICAL HISTORY : Hypertension. Diabetes mellitus type II. SURGICAL HISTORY : None. ENCOUNTER: Initial ACUITY: 1 day PAIN SCORE: 7/10 LOCATION: Bilateral chest FINDINGS: A single view of the chest demonstrates the lungs to be symmetrically aerated without evidence of mas s, infiltrate or effusion. Scattered calcified granulomas previous left lower lobe. The cardiomedias tinal contours are unremarkable. Osseous structures are intact. CONCLUSION: No acute disease. Remy Rya MD on November 13, 2017 at 4:09 Board Certified Radiologist. This report was verified electronically.
[2017-11-13 04:34] LABS: AUTOMATED NEUTROPHIL # 13.1 TH/MM3 (1.8-7.7); BASOPHIL # 0.1 TH/MM3 (0-0.2); BASOPHIL % 0.4 % (0.0-2.0); EOSINOPHIL % 0.2 % (0.0-4.0); HEMATOCRIT 43.2 % (39.0-51.0); HEMOGLOBIN 15.1 GM/DL (13.0-17.0); LYMPH % 8.2 % (9.0-44.0); LYMPHOCYTE # 1.2 TH/MM3 (1.0-4.8); MEAN CELL VOLUME 89.3 FL (80.0-100.0); MEAN CORPUSCULAR HEMOGLOBIN 31.2 PG (27.0-34.0); MEAN PLATELET VOLUME 7.4 FL (7.0-11.0); MONO % 3.4 % (0.0-8.0); MONOCYTE # 0.5 TH/MM3 (0-0.9); NEUT % 87.8 % (16.0-70.0); PLATELET COUNT 307 TH/MM3 (150-450); RED BLOOD COUNT 4.83 MIL/MM3 (4.50-5.90); RED CELL DISTRIBUTION WIDTH 12.8 % (11.6-17.2); WHITE BLOOD COUNT 14.9 TH/MM3 (4.0-11.0)
[2017-11-13 04:36] VITALS: O2SAT 98
[2017-11-13 04:37] LABS: BILIRUBIN, URINE NEG (NEG); BLOOD, URINE NEG (NEG); GLUCOSE,URINE 1000 mg/dL (NEG); KETONE, URINE 10 mg/dL (NEG); NITRITE,URINE NEG (NEG); PH, URINE 6.5 (5.0-8.5); URINE COLOR LIGHT-YELLOW (YELLW/STRAW); URINE LEUKOCYTE ESTERASE NEG (NEG)
[2017-11-13 04:43] LABS: INTERNATIONAL NORMALIZED RATIO 1.1 RATIO; PROTHROMBIN TIME - PATIENT 11.3 SEC (9.8-11.6)
[2017-11-13 04:48] VITALS: BP 199/63; PULSE 88; RESP 15; O2SAT 98
[2017-11-13 04:59] LABS: ALBUMIN 4.3 GM/DL (3.4-5.0); ALT (GPT) 24 U/L (12-78); AST (GOT) 11 U/L (15-37); BICARBONATE 25.1 MEQ/L (21.0-32.0); BLOOD UREA NITROGEN 19 MG/DL (7-18); CHLORIDE 103 MEQ/L (98-107); CREATININE 0.98 MG/DL (0.60-1.30); GLOMERULAR FILTRATION RATE 77 ML/MIN (>89); GLUCOSE,RANDOM 267 MG/DL (74-106); MAGNESIUM 2.2 MG/DL (1.5-2.5); SODIUM (NA) 140 MEQ/L (136-145)
[2017-11-13 05:03] LABS: ALKALINE PHOSPHATASE 65 U/L (45-117); TOTAL BILIRUBIN ADULT 0.9 MG/DL (0.2-1.0); TOTAL PROTEIN 7.8 GM/DL (6.4-8.2); TROPONIN I LESS THAN 0.02 NG/ML (0.02-0.05)
[2017-11-13] MEDS ORDERED: IOHEXOL 350 MG/ML 10 ML VIAL (for RAD DIAG) IVCONTRAST ONE (05:48)
[2017-11-13] MEDS ORDERED: HYDROmorphone HCL PF 2 MG/ML VIAL IV PUSH ONE (06:00)
--- NOTE | 2017-11-13 06:07 | RADRPT ---
EXAM DATE/TIME: 11/13/2017 05:48 [facility] COMPARISON: No previous studies available for comparison. INDICATIONS : Abdomen pain. IV CONTRAST: 75 cc Omnipaque 350 (iohexol) IV ORAL CONTRAST: No oral contrast ingested. RADIATION DOSE: 14.66 CTDIvol (mGy) MEDICAL HISTORY : Renal calculi. Hypertension. SURGICAL HISTORY : None. ENCOUNTER: Initial ACUITY: 1 day PAIN SCALE: 5/10 LOCATION: Bilateral abdomen pain. TECHNIQUE: Volumetric scanning of the abdomen and pelvis was performed. Using automated exposure control and ad justment of the mA and/or kV according to patient size, radiation dose was kept as low as reasonably achievable to obtain optimal diagnostic quality images. DICOM format image data is available electro nically for review and comparison. FINDINGS: LOWER LUNGS: The visualized lower lungs are clear. Calcified granulomas. LIVER: Homogeneous density without lesion. There is no dilation of the biliary tree. No calcified gallston es. SPLEEN: Normal size without lesion. PANCREAS: Within normal limits. KIDNEYS: Normal in size and shape. There is no mass, stone or hydronephrosis. ADRENAL GLANDS: Within normal limits. VASCULAR: There is no aortic aneurysm. BOWEL/MESENTERY: The stomach, small bowel, and colon demonstrate no acute abnormality. Small hiatal hernia. There is no free intraperitoneal air or fluid. ABDOMINAL WALL: Within normal limits. RETROPERITONEUM: There is no lymphadenopathy. BLADDER: No wall thickening or mass. REPRODUCTIVE: Enlarged prostate gland. INGUINAL: There is no lymphadenopathy or hernia. MUSCULOSKELETAL: Scattered degenerative changes. CONCLUSION: 1. No acute inflammatory process 2. Small hiatal hernia. 3. Enlarged prostate gland. Remy Ray MD on November 13, 2017 at 6:03 Board Certified Radiologist. This report was verified electronically.
[2017-11-13] MEDS ORDERED: HYDR-3516 PO (06:14)
[2017-11-13] MEDS ORDERED: CIPR-9 PO (06:14)
[2017-11-13] MEDS ORDERED: REGL5TAB PO (06:14)
[2017-11-13] MEDS ORDERED: CIPROFLOXACIN 400 MG PREMIX 200 ML IV ONE (06:15)
[2017-11-13 07:05] VITALS: BP 180/86
--- NOTE | 2017-11-13 07:57 | EKG ---
Date Performed: 11/13/2017 Time Performed: 04:28:21 PTAGE: 62 years EKG: Sinus rhythm WITH OCCASIONAL SUPRAVENTRICULAR PREMATURE COMPLEXES BORDERLINE ECG No significant change from prior electrocardiogram. PREVIOUS TRACING : 06/23/2017 20.37 DOCTOR: Karl Gandara Interpretating Date/Time 11/13/2017 07:56:48
== END 2017-11-13 07:15 | disposition home or self-care (01) ==
LOC: NEPC 02:44
DX: R10.13 Epigastric pain (principal); R11.2 Nausea with vomiting, unspecified; R31.29 Other microscopic hematuria; R94.31 Abnormal electrocardiogram [ECG] [EKG]; I10 Essential (primary) hypertension; E11.40 Type 2 diabetes mellitus with diabetic neuropathy, unspecified; Z87.442 Personal history of urinary calculi
CPT/HCPCS: 71045; 74177; 80053; 81001; 82150; 82550; 82552; 83735; 84484; 85025; 85610; 85730; 93005; 96361; 96365; 96375; 99284; J0744; J1170; J2405; J3010; J7030; Q9967

== ENCOUNTER 2018-06-15 15:28 | Inpatient (IN) ==
[2018-06-15] MEDS ORDERED: Sod Chloride 0.9% Inj 1,000 ML IV.SIG ONE (17:09)
[2018-06-15] MEDS ORDERED: Morphine Inj 4 MG/ML Vial IV.PUSH ONE (17:24)
[2018-06-15] MEDS ORDERED: Sod Chloride 0.9% Inj 1,000 ML IV.SIG SCH (17:30)
[2018-06-15 17:51] LABS: Baso % (Auto) 0.2 % (0.0-2.0); Eos # (Auto) 0.1 th/mm3 (0.0-0.4); Eos % (Auto) 0.5 % (0.0-4.0); Hematocrit 41.9 % (39.0-51.0); Hemoglobin 15.1 gm/dL (13.0-17.0); Lymph # (Auto) 1.4 th/mm3 (1.0-4.8); Mean Corpuscular Hemoglobin 32.3 pg (27.0-34.0); Mean Corpuscular Volume 89.5 fL (80.0-100.0); Mean Platelet Volume 7.6 fL (7.0-11.0); Mono # (Auto) 1.1 th/mm3 (0.0-0.9); Mono % (Auto) 7.8 % (0.0-8.0); Neut # (Auto) 11.1 th/mm3 (1.8-7.7); Neut % (Auto) 81.5 % (16.0-70.0); Platelet Count 277 th/mm3 (150-450); Red Blood Count 4.68 mil/mm3 (4.50-5.90); Red Cell Distribution Width 13.7 % (11.6-17.2); White Blood Count 13.6 th/mm3 (4.0-11.0)
[2018-06-15 17:53] LABS: Mean Corpuscular HGB Conc 36.1 % (32.0-36.0)
[2018-06-15 17:54] LABS: Bacteria,Urine Rare /hpf; Bilirubin,Urine Negative (Negative); Clarity,Urine Cloudy (Clear); Color,Urine Yellow (Yellw/Straw); Glucose,Urine (UA) 50 mg/dL (Negative); Hyaline Casts,Urine 15 /lpf (0-3); Leukocyte Esterase,Urine Negative (Negative); Mucus,Urine Few /lpf (Occasional); Nitrite,Urine Negative (Negative); Squamous Epithelial Cell,Urine 1 /hpf (0-5)
[2018-06-15 18:13] LABS: Calcium 8.9 mg/dL (8.5-10.1); Magnesium 2.1 mg/dL (1.5-2.5); Potassium 4.1 meq/L (3.5-5.1)
[2018-06-15] MEDS ORDERED: Acetaminophen 325 MG Tablet PO PRN (18:35)
[2018-06-15 18:41] LABS: Platelet Estimate Normal (Normal); Platelet Morphology Normal (Normal); RBC Morphology Normal (Normal)
[2018-06-15] MEDS ORDERED: Dextrose 50% in Water 50 ML Vial IV.PUSH PRN (18:48)
[2018-06-15] MEDS ORDERED: HYDROmorphone PF Inj 1 MG/ML Ampul IV.PUSH PRN (18:51)
[2018-06-15] MEDS ORDERED: Naloxone Inj 0.4 MG/ML Vial IV.PUSH PRN (18:51)
--- NOTE | 2018-06-15 19:24 | ED ---
HPI General Chief Complaint: Abdominal Pain Stated Complaint: states he has a kidney stone Time Seen by Provider: 06/15/18 17:09 Source: patient Mode of arrival: ambulatory Limitations: no limitations History of Present Illness HPI narrative: 62-year-old male the presents to the ED for evaluation of left upper flank pain and left abdominal pain. Per patient patient has had this for about 4 days now. Patient was seen here on June 13 and had a CAT scan that showed 4 x 11 x 7 mm stone on the left side. Patient did had moderate hydronephrosis at the time. Patient felt better after morphine and the provider at the time did spoke with Dr. Muhammad who offered admission but patient at the time did not want to be admitted to the patient was not admitted. They tried outpatient for this. Patient unfortunately states that he has been continued to have pain and he thought about coming yesterday because his Percocet that was prescribed was not really helping. Per patient today his pain is 10 out of 10 is now getting better. Patient came here because again pain is not better. He denies any fevers chills or sweats. No nausea or vomiting. No bowel movement issues. States that he has urinary frequency. No other medical issues at this time. States compliance with the medications given to him. Related Data Home Medications Medication Instructions Recorded Confirmed gabapentin 600 mg PO DAILY 06/13/18 06/15/18 losartan 100 mg PO DAILY 06/13/18 06/15/18 metformin 1,000 mg PO BID 06/13/18 06/15/18 Previous Rx's Medication Instructions Recorded cephalexin [Keflex] 500 mg PO Q12H 7 Days #14 cap 06/13/18 ondansetron HCl [Zofran] 4 mg PO DAILY 7 Days #7 tab 06/13/18 oxycodone-acetaminophen [Percocet] 1 tab PO Q6H PRN #12 tab 06/13/18 Allergies Allergy/AdvReac Type Severity Reaction Status Date / Time penicillin G Allergy Unknown Rash Verified 06/13/18 16:09 Review of Systems ROS: all other systems reviewed are negative [facility] Medical History Medical History Diabetes (Acute) Hypertension (Acute) Kidney stones (Acute) Neuropathy (Acute) Surgical History Surgical History Hx of cholecystectomy (Acute) Social History Social History Substance History: No History of Abuse Second Hand Smoke Exposure: No Smoking Status: Unknown if ever smoked How Often Do You Have a Drink Containing Alcohol: Never Recent Travel in [place] within the Last 8 Weeks: No Recent Out of Country Travel within the Last 8 Weeks: No Immunization History Tetanus Immunization: <5 Years Exam Narrative Exam Narrative: GENERAL: Well appearing SKIN: Focused skin assessment warm/dry. HEAD: Atraumatic. Normocephalic. EYES: Pupils equal and round. No scleral icterus. No injection or drainage. ENT: No nasal bleeding or discharge. Mucous membranes pink and moist. Tongue is midline. No uvula deviation. NECK: Trachea midline. No JVD. CARDIOVASCULAR: Regular rate and rhythm. No murmur appreciated. RESPIRATORY: No accessory muscle use. Clear to auscultation. Breath sounds equal bilaterally. GASTROINTESTINAL: Abdomen soft, non-tender, nondistended. Hepatic and splenic margins not palpable. Patient is a producible left flank pain as well as left lower abdominal pain. MUSCULOSKELETAL: No obvious deformities. No clubbing. No cyanosis. No edema. Full range of motion of the upper and lower extremities bilaterally. 2+ pulses bilaterally. NEUROLOGICAL: Awake and alert. No obvious cranial nerve deficits. Motor grossly within normal limits. Normal speech. PSYCHIATRIC: Appropriate mood and affect; insight and judgment normal. Course Initial Documented Vital Signs Temperature 99.6 F 06/15/18 16:05 Pulse Rate 95 H 06/15/18 16:05 Respiratory Rate 16 06/15/18 16:05 Blood Pressure 168/81 H 06/15/18 16:05 Pulse Oximetry 98 06/15/18 16:05 Last Documented Vital Signs Temperature 98.1 F 06/16/18 08:00 Pulse Rate 74 06/16/18 08:00 Respiratory Rate 20 06/16/18 08:00 Blood Pressure 186/86 H 06/16/18 08:00 Pulse Oximetry 97 06/16/18 08:00 Medical Decision Making JESUSITA Attestation JESUSITA supervised visit: Yes Attestation: I, Dr. Russell, have reviewed the advance practice practitioner's documentation and am in agreement, met with the patient face to face, made the diagnosis, and the medical decision making was done by me. *My assessment and Findings: Ureterolithiasis. Intractable pain. Failed outpatient treatment. Renal insufficiency. MDM Narrative Medical decision making narrative: 62-year-old male the presents to the ED for evaluation of left flank pain. Patient was properly examined and was found to have signs and symptoms consistent with appears to be kidney stone. Did review the patient's medical records. He has a 4 x 11 x 7 mm stone of the left UVJ causing moderate hydronephrosis. At this time I do not recommend imaging as we already know what is causing the pain. The recommend labs to see what the kidney function is. Unfortunately his kidney function has worsened slightly. The recommend admission for further evaluation and treatment of this. Patient agrees. Spoke with Dr. Cottrell who wants the patient n.p.o. after midnight. Patient was admitted to Dr. Matta who agrees admission to his service. Medical Screen Exam Complete: Yes Emergency Medical Condition: Yes Differential Diagnosis Differential Diagnosis: Kidney stone versus failed outpatient treatment versus kidney injury versus hydronephrosis Medical Records Medical records reviewed: Yes I reviewed the patient's medical records. Lab Data Lab results reviewed: Yes I reviewed the patient's lab results. Result diagrams: 06/16/18 06:59 06/16/18 06:59 Lab Results 06/15/18 06/15/18 06/15/18 Range/Units 17:20 17:20 17:20 WBC 13.6 H (4.0-11.0) th/mm3 RBC 4.68 (4.50-5.90) mil/mm3 Hgb 15.1 (13.0-17.0) gm/dL Hct 41.9 (39.0-51.0) % MCV 89.5 (80.0-100.0) fL MCH 32.3 (27.0-34.0) pg MCHC 36.1 H (32.0-36.0) % RDW 13.7 (11.6-17.2) % Plt Count 277 (150-450) th/mm3 MPV 7.6 (7.0-11.0) fL Prelim Diff (Auto) Slide review pending Neut % (Auto) 81.5 H (16.0-70.0) % Lymph % (Auto) 10.0 (9.0-44.0) % [place] % (Auto) 7.8 (0.0-8.0) % Eos % (Auto) 0.5 (0.0-4.0) % Baso % (Auto) 0.2 (0.0-2.0) % Neut # (Auto) 11.1 H (1.8-7.7) th/mm3 Lymph # (Auto) 1.4 (1.0-4.8) th/mm3 [place] # (Auto) 1.1 H (0.0-0.9) th/mm3 Eos # (Auto) 0.1 (0.0-0.4) th/mm3 Baso # (Auto) 0.0 (0.0-0.2) th/mm3 WBC Differential . Diff Scan Auto diff confirmed Differential Comment . Platelet Estimate Normal (Normal) Platelet Morphology Normal (Normal) RBC Morphology Normal (Normal) PT (9.8-11.6) sec INR Ratio Sodium 137 (136-145) meq/L Potassium 4.1 (3.5-5.1) meq/L Chloride 101 (98-107) meq/L Carbon Dioxide 27.0 (21.0-32.0) meq/L Anion Gap 9 (5-15) meq/L BUN 22 H (7-18) mg/dL Creatinine 1.78 H (0.60-1.30) mg/dL Estimated GFR 39 L (>89) mL/min POC Glucose (68-110) mg/dl Random Glucose 197 H (74-106) mg/dL Calcium 8.9 (8.5-10.1) mg/dL Magnesium 2.1 (1.5-2.5) mg/dL Urine Color Yellow (Yellw/Straw) Urine Clarity Cloudy H (Clear) Urine pH 5.0 (5.0-8.5) Ur Specific [place] 1.020 (1.002-1.035) Urine Protein 100 H (Neg-Trace) mg/dL Urine Glucose (UA) 50 (Negative) mg/dL Urine Ketones Negative (Negative) mg/dL Urine Occult Blood Small H (Negative) Urine Nitrate Negative (Negative) Urine Bilirubin Negative (Negative) Urine Urobilinogen Less than 2 (Less than 2) mg/dL Ur Leukocyte Esterase Negative (Negative) Urine RBC 1 (0-3) /hpf Urine WBC 10 H (0-5) /hpf Ur Squamous Epith Cells 1 (0-5) /hpf Urine Bacteria Rare H (None) /hpf Hyaline Casts 15 (0-3) /lpf Urine Mucus Few H (Occasional) /lpf Micro UA Comment Culture not ind Ur Microscopic Review Not Reportable Urine Culture Comments Culture not ind 06/15/18 06/16/18 06/16/18 Range/Units 20:56 03:20 06:59 WBC 9.3 (4.0-11.0) th/mm3 RBC 4.23 L (4.50-5.90) mil/mm3 Hgb 13.6 (13.0-17.0) gm/dL Hct 38.6 L (39.0-51.0) % MCV 91.2 (80.0-100.0) fL MCH 32.0 (27.0-34.0) pg MCHC 35.1 (32.0-36.0) % RDW 13.7 (11.6-17.2) % Plt Count 234 (150-450) th/mm3 MPV 7.5 (7.0-11.0) fL Prelim Diff (Auto) Neut % (Auto) 68.9 (16.0-70.0) % Lymph % (Auto) 18.1 (9.0-44.0) % [place] % (Auto) 10.9 H (0.0-8.0) % Eos % (Auto) 1.8 (0.0-4.0) % Baso % (Auto) 0.3 (0.0-2.0) % Neut # (Auto) 6.4 (1.8-7.7) th/mm3 Lymph # (Auto) 1.7 (1.0-4.8) th/mm3 [place] # (Auto) 1.0 H (0.0-0.9) th/mm3 Eos # (Auto) 0.2 (0.0-0.4) th/mm3 Baso # (Auto) 0.0 (0.0-0.2) th/mm3 WBC Differential . Diff Scan Differential Comment Auto diff final Platelet Estimate (Normal) Platelet Morphology (Normal) RBC Morphology (Normal) PT (9.8-11.6) sec INR Ratio Sodium (136-145) meq/L Potassium (3.5-5.1) meq/L Chloride (98-107) meq/L Carbon Dioxide (21.0-32.0) meq/L Anion Gap (5-15) meq/L BUN (7-18) mg/dL Creatinine (0.60-1.30) mg/dL Estimated GFR (>89) mL/min POC Glucose 226 H (68-110) mg/dl Random Glucose (74-106) mg/dL Calcium (8.5-10.1) mg/dL Magnesium (1.5-2.5) mg/dL Urine Color Yellow (Yellw/Straw) Urine Clarity Clear (Clear) Urine pH 5.0 (5.0-8.5) Ur Specific [place] 1.010 (1.002-1.035) Urine Protein Negative (Neg-Trace) mg/dL Urine Glucose (UA) 50 (Negative) mg/dL Urine Ketones Negative (Negative) mg/dL Urine Occult Blood Negative (Negative) Urine Nitrate Negative (Negative) Urine Bilirubin Negative (Negative) Urine Urobilinogen Less than 2 (Less than 2) mg/dL Ur Leukocyte Esterase Negative (Negative) Urine RBC Less than 1 (0-3) /hpf Urine WBC (0-5) /hpf Ur Squamous Epith Cells (0-5) /hpf Urine Bacteria (None) /hpf Hyaline Casts 1 (0-3) /lpf Urine Mucus Few H (Occasional) /lpf Micro UA Comment Culture not ind Ur Microscopic Review Not Reportable Urine Culture Comments Culture not ind 06/16/18 06/16/18 06/16/18 Range/Units 06:59 06:59 07:59 WBC (4.0-11.0) th/mm3 RBC (4.50-5.90) mil/mm3 Hgb (13.0-17.0) gm/dL Hct (39.0-51.0) % MCV (80.0-100.0) fL MCH (27.0-34.0) pg MCHC (32.0-36.0) % RDW (11.6-17.2) % Plt Count (150-450) th/mm3 MPV (7.0-11.0) fL Prelim Diff (Auto) Neut % (Auto) (16.0-70.0) % Lymph % (Auto) (9.0-44.0) % [place] % (Auto) (0.0-8.0) % Eos % (Auto) (0.0-4.0) % Baso % (Auto) (0.0-2.0) % Neut # (Auto) (1.8-7.7) th/mm3 Lymph # (Auto) (1.0-4.8) th/mm3 [place] # (Auto) (0.0-0.9) th/mm3 Eos # (Auto) (0.0-0.4) th/mm3 Baso # (Auto) (0.0-0.2) th/mm3 WBC Differential Diff Scan Differential Comment Platelet Estimate (Normal) Platelet Morphology (Normal) RBC Morphology (Normal) PT 11.2 (9.8-11.6) sec INR 1.1 Ratio Sodium 143 (136-145) meq/L Potassium 4.0 (3.5-5.1) meq/L Chloride 105 (98-107) meq/L Carbon Dioxide 28.1 (21.0-32.0) meq/L Anion Gap 10 (5-15) meq/L BUN 20 H (7-18) mg/dL Creatinine 1.51 H (0.60-1.30) mg/dL Estimated GFR 47 L (>89) mL/min POC Glucose 203 H (68-110) mg/dl Random Glucose 166 H (74-106) mg/dL Calcium 8.5 (8.5-10.1) mg/dL Magnesium (1.5-2.5) mg/dL Urine Color (Yellw/Straw) Urine Clarity (Clear) Urine pH (5.0-8.5) Ur Specific [place] (1.002-1.035) Urine Protein (Neg-Trace) mg/dL Urine Glucose (UA) (Negative) mg/dL Urine Ketones (Negative) mg/dL Urine Occult Blood (Negative) Urine Nitrate (Negative) Urine Bilirubin (Negative) Urine Urobilinogen (Less than 2) mg/dL Ur Leukocyte Esterase (Negative) Urine RBC (0-3) /hpf Urine WBC (0-5) /hpf Ur Squamous Epith Cells (0-5) /hpf Urine Bacteria (None) /hpf Hyaline Casts (0-3) /lpf Urine Mucus (Occasional) /lpf Micro UA Comment Ur Microscopic Review Urine Culture Comments Imaging Data Radiologist's impression: Chest X-Ray 06/15/18 00:00 CONCLUSION: No evidence of acute cardiopulmonary disease. Discharge Plan Discharge Disposition Patient Disposition: 30 Still Patient Discharge Details Diagnosis: Calcium ureterolithiasis, Hydronephrosis, Acute kidney injury Physicians Team ED Provider: Juan Russell ED Midlevel Provider: Jerardo Zimmerman Primary Care Provider: Sagar Alfred Attending Provider: Matti Matta Other Providers: Richard Cottrell Status ED Status: Left Department Discharge Information Discharge Date/Time: 06/15/18 21:19
--- NOTE | 2018-06-15 19:30 | XR ---
EXAM DATE: 06/15/2018 7:20 PM EST AGE/SEX: 62 years / Male INDICATIONS: Shortness of breath. CLINICAL DATA: This is the patient's initial encounter. Patient reports that signs and symptoms have been present for 1 day and indicates a pain score of 0/10. MEDICAL/SURGICAL HISTORY: . Diabetes. Hypertension. Renal calculi. Cholecystectomy. [place] [facility] [place]/13/2018. . FINDINGS: A single AP view of the chest demonstrates the lungs to be symmetrically aerated without evidence of mass, infiltrate or effusion. The cardiomediastinal contours are unremarkable. Osseous structures a re intact. Small hiatal hernia seen. CONCLUSION: No evidence of acute cardiopulmonary disease. Electronically signed by: Maxim Olivera MD 06/15/2018 7:29 PM EST
[2018-06-15] MEDS: Insulin NovoLOG Aspart Correctional Sugar Inj SQ SCH (20:58)
[2018-06-15] MEDS: Senna/Docusate Sodium 8.6/50 MG Tablet PO SCH (21:31)
[2018-06-15] MEDS: HYDROmorphone PF Inj 1 MG/ML Ampul IV.PUSH PRN (23:11)
[2018-06-16] MEDS ORDERED: Metoprolol Tartrate 25 MG Tablet PO ONE (02:35)
[2018-06-16] MEDS ORDERED: Chlorhexidine Gluconate 2% 1 Pack (2 Cloths) TOPICAL ONE (02:35)
[2018-06-16 04:24] LABS: Bilirubin,Urine Negative (Negative); Clarity,Urine Clear (Clear); Color,Urine Yellow (Yellw/Straw); Glucose,Urine (UA) 50 mg/dL (Negative); Hyaline Casts,Urine 1 /lpf (0-3); Leukocyte Esterase,Urine Negative (Negative); Mucus,Urine Few /lpf (Occasional); Nitrite,Urine Negative (Negative)
[2018-06-16] MEDS: Insulin NovoLOG Aspart Correctional Sugar Inj SQ SCH ×3 (08:00→17:20)
[2018-06-16 08:14] LABS: Baso % (Auto) 0.3 % (0.0-2.0); Eos # (Auto) 0.2 th/mm3 (0.0-0.4); Eos % (Auto) 1.8 % (0.0-4.0); Hematocrit 38.6 % (39.0-51.0); Hemoglobin 13.6 gm/dL (13.0-17.0); Lymph # (Auto) 1.7 th/mm3 (1.0-4.8); Lymph % (Auto) 18.1 % (9.0-44.0); Mean Corpuscular HGB Conc 35.1 % (32.0-36.0); Mean Corpuscular Volume 91.2 fL (80.0-100.0); Mean Platelet Volume 7.5 fL (7.0-11.0); Mono % (Auto) 10.9 % (0.0-8.0); Neut # (Auto) 6.4 th/mm3 (1.8-7.7); Neut % (Auto) 68.9 % (16.0-70.0); Platelet Count 234 th/mm3 (150-450); Red Blood Count 4.23 mil/mm3 (4.50-5.90); Red Cell Distribution Width 13.7 % (11.6-17.2); White Blood Count 9.3 th/mm3 (4.0-11.0)
[2018-06-16 08:18] LABS: INR 1.1 Ratio; Prothrombin Time 11.2 sec (9.8-11.6)
[2018-06-16 08:36] LABS: Calcium 8.5 mg/dL (8.5-10.1); Carbon Dioxide 28.1 meq/L (21.0-32.0)
--- NOTE | 2018-06-16 09:58 | P.HPIM ---
History of Present Illness Primary Care Physician: Sagar Alfred MD Chief Complaint: Diagnosed with kidney stone last still having flank pain History of Present Illness: This a 62-year-old male patient with past medical history which includes hypertension and diabetes mellitus type 2. Patient reports he was seen in the emergency department last , 06/13/2018 diagnosed with 4 x 11 x 7 mm kidney stone on the left side patient returns to the emergency department yesterday with continued right flank pain. In reviewing prior records patient did have moderate hydronephrosis at that time. Patient was offered admission but patient at the time did not want to be admitted to the patient was DC'd home. Patient unfortunately states that he has been continued to have pain not relieved by Percocet. Upon arrival to the ER patient reported his pain was 10 out of 10. Patient also endorses urinary frequency. Patient denies fevers chills nausea vomiting diarrhea constipation shortness of breath or chest pain PMH: Hypertension diabetes mellitus type 2 PSxH: Colonoscopy 2000, surgical repair of left ankle 1970, left knee surgery 1973, right knee surgery 1994 FMH: Reviewed and noncontributory Social history: Patient denies EtOH use tobacco use or illicit drug use Inpatient Certification Estimated Total Length of Stay (Days): 3 Plans for Post Hospital Care: Home Medications and Allergies Allergies Allergy/AdvReac Type Severity Reaction Status Date / Time penicillin G Allergy Unknown Rash Verified 06/13/18 16:09 Home Medications Medication Instructions Recorded Confirmed Type gabapentin 600 mg PO DAILY 06/13/18 06/15/18 History losartan 100 mg PO DAILY 06/13/18 06/15/18 History metformin 1,000 mg PO BID 06/13/18 06/15/18 History Active Medications: Active Medications Acetaminophen (Tylenol) 650 mg PO Q4H PRN PRN Reason: Temp > 100.4 Hydrocodone Bitart/Acetaminophen ([place] 5/325) 1 tab PO Q4H PRN PRN Reason: pain 1-5 Last Admin: 06/16/18 06:03 Dose: 1 tab Al Hydroxide/Mg Hydroxide (Milk Of Magnesia Liq) 30 ml PO Q12H PRN PRN Reason: Mild Constipation Clonidine HCl (Catapres) 0.2 mg PO Q6H PRN PRN Reason: SBP>160, DBP>90 Last Admin: 06/15/18 21:29 Dose: 0.2 mg Dextrose (D50w Vial) 50 ml IV.PUSH UNSCH PRN PRN Reason: PER HYPOGLYCEMIA PROTOCOL Enalaprilat (Vasotec Inj) 1.25 mg IV.PUSH Q6H PRN PRN Reason: SYS BP GREATER THAN 160 MMHG Glucagon (Glucagon Inj) 1 mg OTHER PRN PRN PRN Reason: for Hypoglycemia Protocol Hydromorphone HCl (Dilaudid Pf Inj) 0.5 mg IV.PUSH Q4H PRN PRN Reason: pain 6-10 Last Admin: 06/15/18 21:29 Dose: 0.5 mg Hydromorphone HCl (Dilaudid Pf Inj) 1 mg IV.PUSH Q4H PRN PRN Reason: BREAKTHROUGH PAIN Last Admin: 06/15/18 23:11 Dose: 1 mg Lactated Ringer's (Lr 1000 Ml Inj) 1,000 mls @ 30 mls/hr IV.SIG .Q24H SHANNA Stop: 06/17/18 02:44 Insulin Aspart (Novolog Insulin Correctional Sugar Inj) 0 unit SQ ACHS SHANNA; Protocol Last Admin: 06/15/18 20:58 Dose: 100 unit Naloxone HCl (Narcan Inj) 0.4 mg IV.PUSH PRN PRN PRN Reason: SEE LABEL COMMENTS Ondansetron HCl (Zofran Inj) 4 mg IV.PUSH Q6H PRN PRN Reason: NAUSEA OR VOMITING Senna/Docusate Sodium (Yahaira-Colace) 1 tab PO BID SHANNA Last Admin: 06/15/18 21:31 Dose: Not Given Physical Exam Vital signs: Last Vital Signs Temp 98.1 F 06/16/18 08:00 Pulse 74 06/16/18 08:00 Resp 20 06/16/18 08:00 BP 186/86 H 06/16/18 08:00 Pulse Ox 97 06/16/18 08:00 Narrative: GENERAL: This is a well-nourished, well-developed patient, in no apparent distress. CARDIOVASCULAR: Regular rate and rhythm without murmurs, gallops, or rubs. RESPIRATORY: Clear to auscultation. Breath sounds equal bilaterally. No wheezes , rales, or rhonchi. GASTROINTESTINAL: Abdomen soft, non-tender, nondistended. Normal active bowel sounds GENITOURINARY: Left CVA tenderness MUSCULOSKELETAL: Extremities without clubbing, cyanosis, or edema. NEURO: Alert & Oriented x4 to person, place, time, situation. Moves all ext x4 Results Labs CBC & Chem 7: 06/16/18 06:59 06/16/18 06:59 Caprinleon VTE Risk Assessment Caprini VTE Risk Assessment: No/Low Risk (score <= 1) Miguelrini Risk Assessment Model: Point Value = 1 Point Value = 2 Point Value = 3 Point Value = 5 Age 41-60 Minor surgery BMI > 25 kg/m2 Swollen legs Varicose veins or History of unexplained or recurrent spontaneous Oral contraceptives or hormone replacement Sepsis (< 1 month) Serious lung disease, including pneumonia (< 1 month) Abnormal pulmonary function Acute myocardial infarction Congestive heart failure (< 1 month) History of inflammatory bowel disease Medical patient at bed rest Age 61-74 Arthroscopic surgery Major open surgery (> 45 min) Laparoscopic surgery (> 45 min) Malignancy Confined to bed (> 72 hours) Immobilizing plaster cast Central venous access Age >= 75 History of VTE Family history of VTE Factor V Leiden Prothrombin [id number] Lupus anticoagulant Anticardiolipin antibodies Elevated serum homocysteine Heparin-induced thrombocytopenia Other congenital or acquired thrombophilia Stroke (< 1 month) Elective arthroplasty Hip, pelvis, or leg fracture Acute spinal cord injury (< 1 month) Prophylaxis Regimen: Total Risk Factor Score Risk Level Prophylaxis Regimen 0-1 Low Early ambulation 2 Moderate Order ONE of the following: *Sequential Compression Device (SCD) *Heparin 5000 units SQ BID 3-4 Higher Order ONE of the following medications: *Heparin 5000 units SQ TID *Enoxaparin/Lovenox 40 mg SQ daily (WT < 150 kg, CrCl > 30 mL/min) *Enoxaparin/Lovenox 30 mg SQ daily (WT < 150 kg, CrCl > 10-29 mL/min) *Enoxaparin/Lovenox 30 mg SQ BID (WT < 150 kg, CrCl > 30 mL/min) AND/OR *Sequential Compression Device (SCD) 5 or more Highest Order ONE of the following medications: *Heparin 5000 units SQ TID (Preferred with Epidurals) *Enoxaparin/Lovenox 40 mg SQ daily (WT < 150 kg, CrCl > 30 mL/min) *Enoxaparin/Lovenox 30 mg SQ daily (WT < 150 kg, CrCl > 10-29 mL/min) *Enoxaparin/Lovenox 30 mg SQ BID (WT < 150 kg, CrCl > 30 mL/min) AND *Sequential Compression Device (SCD) Assessment and Plan Plan This a 62-year-old male patient with past medical history which includes hypertension and diabetes mellitus type 2. Patient reports he was seen in the emergency department last , 06/13/2018 diagnosed with 4 x 11 x 7 mm kidney stone on the left side patient returns to the emergency department yesterday with continued right flank pain. In reviewing prior records patient did have moderate hydronephrosis at that time. Patient was offered admission but patient at the time did not want to be admitted to the patient was DC'd home. Patient unfortunately states that he has been continued to have pain not relieved by Percocet. Upon arrival to the ER patient reported his pain was 10 out of 10. Patient also endorses urinary frequency. Patient denies fevers chills nausea vomiting diarrhea constipation shortness of breath or chest pain Acute kidney injury likely secondary to left UPJ stone Left UPJ stone Chest X-Ray 06/15/18 No evidence of acute cardiopulmonary disease. Abdominal pelvis CT scan 06/13/2018 revealed 1. 4 x 7 x 11 mm left UPJ stone causing moderate obstructive uropathy. Skin to stone distance is approximately 11.5 cm anteriorly. The stone can be seen on the initial watch leader radiograph. 2. Cholecystectomy changes and apparently done fairly recently. Small fluid and a few bubbles of gas are seen in thegallbladder fossa. 3. Nonspecific wall thickening of the distal esophagus. 4. Vascular calcifications.5. Old granulomatous disease on admission BUN 22, creatinine 1.78, GFR 39 (06/16) BUN 20, creatinine 1.51, GFR 1.51 IV fluids NPO initially advanced to diabetic diet consult urology - Dr. Matta discussed the case with Dr. Cottrell plans to place JJ stent to left ureter today. Dilaudid and [place] as needed for pain Diabetes mellitus type 2 diabetic diet Accu-Cheks AC at bedtime with sliding scale insulin coverage Hypertension continue patient's home Hypertension patient not on medication outpatient Monitor blood pressure while in the hospital DVT prophylaxis with SCDs H&P: Quality VTE Deep Vein Thrombosis/Pulmonary Embolism Present on Admission: No
--- NOTE | 2018-06-16 10:10 | ECG ---
Date Performed: 06/16/2018 Time Performed: 09:29:00 PTAGE: 62 years EKG: Sinus rhythm NORMAL ECG No significant change from prior electrocardiogram. PREVIOUS TRACING : 06/13/2018 18.52 DOCTOR: Karl Gandara Interpretating Date/Time 06/16/2018 10:10:04
[2018-06-16] MEDS: HYDROmorphone PF Inj 1 MG/ML Ampul IV.PUSH PRN (11:17)
[2018-06-16] MEDS: Senna/Docusate Sodium 8.6/50 MG Tablet PO SCH (11:23)
[2018-06-16] MEDS ORDERED: Sod Chloride 0.9% Inj 1,000 ML IV.CONT SCH (12:53)
--- NOTE | 2018-06-16 14:15 | MB ---
cc: Richard Cottrell DO DATE: 06/16/2018 HISTORY OF PRESENT ILLNESS: Mr. Presley is a pleasant 62-year-old male who presented to the emergency room last night with findings on CT scan of 11 x 7 left UPJ stone causing hydronephrosis. The patient came in earlier this week and then was discharged. He continues to have left-sided flank pain. He did have some nausea and vomiting at that time but does not have any at the present time. PAST MEDICAL HISTORY: Hypertension, diabetes type 2, and nephrolithiasis. PAST SURGICAL HISTORY: Cholecystectomy; colonoscopy; left ankle, left knee, and right knee surgery. FAMILY HISTORY: History of stones as noted. SOCIAL HISTORY: He denies smoking, drinking, or using drugs. He currently works at [employer]. ALLERGIES: ALLERGIC TO PENICILLIN. MEDICATIONS: Please see the chart. REVIEW OF SYSTEMS: Left-sided flank and left abdominal pain is noted. Denies chest pain, shortness of breath. Denies fever, chills, nausea, vomiting, diarrhea, constipation. Remaining review of systems were reviewed and were negative. PHYSICAL EXAMINATION: VITAL SIGNS: Temperature 97.5, heart rate 64, respiratory 20, blood pressure 160/74. GENERAL: He is a well-developed, well-nourished, 62-year-old male in no acute distress. HEENT: Normocephalic, atraumatic. Pupils equal, round, reactive to light. Extraocular movements intact. NECK: Supple. HEART: Regular rate and rhythm. LUNGS: Clear. ABDOMEN: Soft, nontender, nondistended. Left CVA tenderness noted. GENITOURINARY: Normal phallus. Testes descended. EXTREMITIES: No cyanosis, clubbing, or edema. LABORATORY DATA: White count 9.3, hemoglobin 13.6, hematocrit 38.6, platelet count of 234. Sodium 143, potassium 4.0, chloride 105, CO2 of 28.1, BUN of 20, creatinine 1.5, glucose of 226. Urinalysis: Culture not indicated. Negative. CT scan again shows a 4 x 7 x 11 left UPJ stone causing moderate obstructive uropathy. ASSESSMENT: This is a 62-year-old male with an 11 mm stone at ureteropelvic junction causing obstruction. PLAN: We will plan for cystoscopy, left double-J stent insertion. Risks and benefits were discussed, and he is willing to proceed. DO Marcy Willis , 01:57 PM , 02:03 PM
[2018-06-16] MEDS ORDERED: Lidocaine PF 1% Inj 5 ML Syringe OTHER ONE (14:19)
[2018-06-16] MEDS ORDERED: Ciprofloxacin 400 MG/200 ML 400 MG/200 ML PIGGYBACK IV.SIG ONE (14:23)
--- NOTE | 2018-06-16 14:57 | P.OP ---
- Preoperative Diagnosis (1) Obstruction of left ureteropelvic junction due to stone (2) Hydronephrosis - Postoperative Diagnosis (1) Hydronephrosis (2) Obstruction of left ureteropelvic junction due to stone Date of procedure: 06/16/18 Procedure: Cystoscopy left retrograde pyelogram left double-J stent insertion Anesthesia: other (General LMA) Surgeon: Richard Cottrell DO Estimated blood loss (mL): 0 Operation and Findings: 62-year-old male with findings of 11 x 4 mm left UPJ stone causing obstruction with hydronephrosis. Decision was made to bring the patient to the operating room to undergo cystoscopy left retrograde pyelogram and left double-J stent insertion. Risk and benefits were discussed preoperatively patient is willing to proceed. Patient was brought to the operating room and identified by myself as Momo Presley. He was placed in the dorsolithotomy position, prepped and draped you sterile fashion, received preprocedure antibiotics and general LMA anesthesia was administered. 22 Welsh cystoscope was inserted the bladder and rivas cystoscopy did not reveal any abnormal. A 5 Welsh opening catheter was inserted in the left ureteral orifice and retrograde pyelogram was performed demonstrating a stone at the left UPJ region. A 0.35 sensor wire was then passed through the open-ended catheter and up into the kidney. A 6 Welsh 22 cm left double-J stent was passed with a good curl in the kidney and the bladder. The bladder was evacuated and he was awoken and transferred him stable condition. He will require left extracorporeal shockwave lithotripsy as an outpatient.
[2018-06-16 16:18] VITALS: O2SAT 98
[2018-06-16 17:35] VITALS: BP 154/65; PULSE 77; RESP 16; TEMP 98.4
--- NOTE | 2018-06-16 17:36 | P.DS ---
DS: Providers Date of admission: 06/15/18 19:47 Primary care physician: Sagar Alfred MD Consults: 06/15/18 18:49 Consult to Urology Routine Consulting Provider: Richard Cottrell Preferred Abstract Maker:: Richard Cottrell Reason for Consultation: kidney stone Notified:: Service Spoke with:: Nick Date Notified:: 06/15/18 Time Notified:: 19:43 Ordering Provider: GENE DS: Diagnosis Discharge Diagnosis (1) Calcium ureterolithiasis: Status: Acute (2) Acute kidney injury: Status: Acute (3) Obstruction of left ureteropelvic junction due to stone: Status: Acute DS: Summary This a 62-year-old male patient with past medical history which includes hypertension and diabetes mellitus type 2. Patient reports he was seen in the emergency department last , 06/13/2018 diagnosed with 4 x 11 x 7 mm kidney stone on the left side patient returns to the emergency department yesterday with continued right flank pain. In reviewing prior records patient did have moderate hydronephrosis at that time. Patient was offered admission but patient at the time did not want to be admitted to the patient was DC'd home. Patient unfortunately states that he has been continued to have pain not relieved by Percocet. Upon arrival to the ER patient reported his pain was 10 out of 10. Patient also endorses urinary frequency. Patient denies fevers chills nausea vomiting diarrhea constipation shortness of breath or chest pain Acute kidney injury likely secondary to left UPJ stone Left UPJ stone Chest X-Ray 06/15/18 No evidence of acute cardiopulmonary disease. Abdominal pelvis CT scan 06/13/2018 revealed 1. 4 x 7 x 11 mm left UPJ stone causing moderate obstructive uropathy. Skin to stone distance is approximately 11.5 cm anteriorly. The stone can be seen on the initial vendor manager radiograph. 2. Cholecystectomy changes and apparently done fairly recently. Small fluid and a few bubbles of gas are seen in thegallbladder fossa. 3. Nonspecific wall thickening of the distal esophagus. 4. Vascular calcifications.5. Old granulomatous disease on admission BUN 22, creatinine 1.78, GFR 39 (06/16) BUN 20, creatinine 1.51, GFR 1.51 IV fluids NPO initially advanced to diabetic diet consult urology - Dr. Matta discussed the case with Dr. Cottrell plans to place JJ stent to left ureter today. - 06/16/18 patient underwent Cystoscopy left retrograde pyelogram left double-J stent insertion with Dr. Cottrell - per Dr. Cottrell op note: He will require left extracorporeal shockwave lithotripsy as an outpatient Dilaudid and Yancey as needed for pain Diabetes mellitus type 2 diabetic diet Accu-Cheks AC at bedtime with sliding scale insulin coverage Hypertension continue patient's home Hypertension patient not on medication outpatient Monitor blood pressure while in the hospital DVT prophylaxis with SCDs Patient dressed asking to be discharged home Patient unwilling to stay in the hospital any longer Time Spent with Patient Total time spent providing and/or coordinating discharge services: Quality: VTE Deep Vein Thrombosis/Pulmonary Embolism Present on Admission: No Exam Narrative Exam Narrative: GENERAL: This is a well-nourished, well-developed patient, in no apparent distress. CARDIOVASCULAR: Regular rate and rhythm without murmurs, gallops, or rubs. RESPIRATORY: Clear to auscultation. Breath sounds equal bilaterally. No wheezes , rales, or rhonchi. GASTROINTESTINAL: Abdomen soft, non-tender, nondistended. Normal active bowel sounds GENITOURINARY: Left CVA tenderness MUSCULOSKELETAL: Extremities without clubbing, cyanosis, or edema. NEURO: Alert & Oriented. Moves all ext x4 DS: Data Labs on day of discharge: Labs from last 24 hours 06/16/18 06/16/18 06/16/18 15:09 12:41 07:59 WBC RBC Hgb Hct MCV MCH MCHC RDW Plt Count MPV Prelim Diff (Auto) Neut % (Auto) Lymph % (Auto) [place] % (Auto) Eos % (Auto) Baso % (Auto) Neut # (Auto) Lymph # (Auto) [place] # (Auto) Eos # (Auto) Baso # (Auto) WBC Differential Diff Scan Differential Comment Platelet Estimate Platelet Morphology RBC Morphology PT INR Sodium Potassium Chloride Carbon Dioxide Anion Gap BUN Creatinine Estimated GFR POC Glucose 162 H 135 H 203 H Random Glucose Calcium Magnesium Urine Color Urine Clarity Urine pH Ur Specific [place] Urine Protein Urine Glucose (UA) Urine Ketones Urine Occult Blood Urine Nitrate Urine Bilirubin Urine Urobilinogen Ur Leukocyte Esterase Urine RBC Urine WBC Ur Squamous Epith Cells Urine Bacteria Hyaline Casts Urine Mucus Micro UA Comment Ur Microscopic Review Urine Culture Comments 06/16/18 06/16/18 06/16/18 06:59 06:59 06:59 WBC 9.3 RBC 4.23 L Hgb 13.6 Hct 38.6 L MCV 91.2 MCH 32.0 MCHC 35.1 RDW 13.7 Plt Count 234 MPV 7.5 Prelim Diff (Auto) Neut % (Auto) 68.9 Lymph % (Auto) 18.1 [place] % (Auto) 10.9 H Eos % (Auto) 1.8 Baso % (Auto) 0.3 Neut # (Auto) 6.4 Lymph # (Auto) 1.7 [place] # (Auto) 1.0 H Eos # (Auto) 0.2 Baso # (Auto) 0.0 WBC Differential . Diff Scan Differential Comment Auto diff final Platelet Estimate Platelet Morphology RBC Morphology PT 11.2 INR 1.1 Sodium 143 Potassium 4.0 Chloride 105 Carbon Dioxide 28.1 Anion Gap 10 BUN 20 H Creatinine 1.51 H Estimated GFR 47 L POC Glucose Random Glucose 166 H Calcium 8.5 Magnesium Urine Color Urine Clarity Urine pH Ur Specific [place] Urine Protein Urine Glucose (UA) Urine Ketones Urine Occult Blood Urine Nitrate Urine Bilirubin Urine Urobilinogen Ur Leukocyte Esterase Urine RBC Urine WBC Ur Squamous Epith Cells Urine Bacteria Hyaline Casts Urine Mucus Micro UA Comment Ur Microscopic Review Urine Culture Comments 06/16/18 06/15/18 06/15/18 03:20 20:56 17:20 WBC RBC Hgb Hct MCV MCH MCHC RDW Plt Count MPV Prelim Diff (Auto) Neut % (Auto) Lymph % (Auto) [place] % (Auto) Eos % (Auto) Baso % (Auto) Neut # (Auto) Lymph # (Auto) [place] # (Auto) Eos # (Auto) Baso # (Auto) WBC Differential Diff Scan Differential Comment Platelet Estimate Platelet Morphology RBC Morphology PT INR Sodium Potassium Chloride Carbon Dioxide Anion Gap BUN Creatinine Estimated GFR POC Glucose 226 H Random Glucose Calcium Magnesium Urine Color Yellow Yellow Urine Clarity Clear Cloudy H Urine pH 5.0 5.0 Ur Specific [place] 1.010 1.020 Urine Protein Negative 100 H Urine Glucose (UA) 50 50 Urine Ketones Negative Negative Urine Occult Blood Negative Small H Urine Nitrate Negative Negative Urine Bilirubin Negative Negative Urine Urobilinogen Less than 2 Less than 2 Ur Leukocyte Esterase Negative Negative Urine RBC Less than 1 1 Urine WBC 10 H Ur Squamous Epith Cells 1 Urine Bacteria Rare H Hyaline Casts 1 15 Urine Mucus Few H Few H Micro UA Comment Culture not ind Culture not ind Ur Microscopic Review Not Reportable Not Reportable Urine Culture Comments Culture not ind Culture not ind 06/15/18 06/15/18 17:20 17:20 WBC 13.6 H RBC 4.68 Hgb 15.1 Hct 41.9 MCV 89.5 MCH 32.3 MCHC 36.1 H RDW 13.7 Plt Count 277 MPV 7.6 Prelim Diff (Auto) Slide review pending Neut % (Auto) 81.5 H Lymph % (Auto) 10.0 [place] % (Auto) 7.8 Eos % (Auto) 0.5 Baso % (Auto) 0.2 Neut # (Auto) 11.1 H Lymph # (Auto) 1.4 [place] # (Auto) 1.1 H Eos # (Auto) 0.1 Baso # (Auto) 0.0 WBC Differential . Diff Scan Auto diff confirmed Differential Comment . Platelet Estimate Normal Platelet Morphology Normal RBC Morphology Normal PT INR Sodium 137 Potassium 4.1 Chloride 101 Carbon Dioxide 27.0 Anion Gap 9 BUN 22 H Creatinine 1.78 H Estimated GFR 39 L POC Glucose Random Glucose 197 H Calcium 8.9 Magnesium 2.1 Urine Color Urine Clarity Urine pH Ur Specific [place] Urine Protein Urine Glucose (UA) Urine Ketones Urine Occult Blood Urine Nitrate Urine Bilirubin Urine Urobilinogen Ur Leukocyte Esterase Urine RBC Urine WBC Ur Squamous Epith Cells Urine Bacteria Hyaline Casts Urine Mucus Micro UA Comment Ur Microscopic Review Urine Culture Comments Impressions Chest X-Ray 06/15/18 00:00 CONCLUSION: No evidence of acute cardiopulmonary disease. Additional Comments Procedures: 06/16/18 patient underwent Cystoscopy left retrograde pyelogram left double-J stent insertion with Dr. Cottrell Discharge Plan Discharge Disposition Patient Disposition: Discharge Home Discharge Condition Condition: Stable Discharge Order Discharge Orders: Discharge Order (Routine); Ordered 06/16/18 Ordered By: Jackelin Garcia Discharge Details Anticipated Discharge Date: 06/16/18 Physicians Team ED Provider: Juan Russell ED Midlevel Provider: Jerardo Zimmerman Primary Care Provider: Sagar Alfred Attending Provider: Matti Matta Other Providers: Richard Cottrell Rxs /Orders / Referrals /Forms Prescriptions: Continue metformin 500 mg Tablet 1,000 mg PO BID RF: 0 gabapentin 600 mg Tablet 600 mg PO DAILY RF: 0 losartan 100 mg Tablet 100 mg PO DAILY RF: 0 oxycodone-acetaminophen [Percocet] 5-325 mg tablet 1 tab PO Q6H PRN (Reason: pain) Qty: 12 RF: 0 ondansetron HCl [Zofran] 4 mg tablet 4 mg PO DAILY 7 Days Qty: 7 RF: 0 Discontinued cephalexin [Keflex] 500 mg capsule 500 mg PO Q12H 7 Days Qty: 14 RF: 0 Referrals: Sagar Alfred MD [Primary Care Provider] - See Instructions (follow up in 1 week) Richard Cottrell DO [UROLOGY] - See Instructions (follow up in 1-2 weeks) Discharge Instructions Patient Printed Instructions: Intravenous Pyelogram (DC), Cystoscopy (DC) Additional Instructions: antibiotic Ciprofloxacin 500 mg PO BID for five days pain medication Lortab 5/325 and Pyridium [address] prescriptions written [address] Cottrell Status ED Status: Left Department
[2018-06-16] MEDS ORDERED: Ciprofloxacin 500 MG Tablet PO SCH ×2 (18:00→21:00)
== END 2018-06-16 18:22 | disposition home or self-care (01) ==
LOC: NEPE 15:28 → NEDA 19:47 → N07 21:24
PROVIDERS: ADMIT Hospitalist; ATTEND Hospitalist
DX: I10 Essential (primary) hypertension; Z88.0 Allergy status to penicillin; Z79.84 Long term (current) use of oral hypoglycemic drugs; N17.9 Acute kidney failure, unspecified; Z87.442 Personal history of urinary calculi; N13.0 Hydronephrosis with ureteropelvic junction obstruction; E11.40 Type 2 diabetes mellitus with diabetic neuropathy, unspecified